=== PATIENT | female | born 1945 | race African-American/Black ===

== ENCOUNTER 2025-05-01 16:13 | Inpatient (IN) | payer MEDICARE, OTHER ==
[~2025-05-01] VITALS: Ht 167.6 cm; Wt 69.9 kg
[~2025-05-01 16:13] MED LIST: ESCI5TAB MT; FURO-152 MT; GABA-1180 MT; HYDR-4350 PO
[2025-05-01 16:14] VITALS: O2SAT 98
[2025-05-01] MEDS: ACETAMINOPHEN 500MG TABLET PO ONE (17:10)
[2025-05-01] MEDS: TETRACAINE 0.5% OPHTH DROPS 4ML RIGHTEYE ONE (22:03)
[2025-05-01] MEDS: FLUORESCEIN SODIUM 1MG/STRIP RIGHTEYE ONE (22:03)
[2025-05-01] MEDS ORDERED: CLINDAMYCIN 600 MG in DEXTROSE 5% WATER 50 ML IV ONE (22:45)
[2025-05-01] MEDS: MORPHINE SULFATE 2 MG/ML INJ (NOT FOR IM USE) IV ONE (23:26)
[2025-05-01] MEDS ORDERED: CLINDAMYCIN 600MG PREMIX 50 ML IV NR (23:30)
[2025-05-01 23:39] LABS: PLATELET 388 x1000/uL (130-400); RED BLOOD CELL COUNT 2.66 mill/uL (4.2-5.4); RED CELL DISTRIBUTION WIDTH 15.2 % (11.6-14.6)
[2025-05-01 23:50] LABS: CREATININE 1.0 mg/dL (0.6-1.0); UREA NITROGEN BLOOD 18 mg/dL (9-23)
[2025-05-02] VITALS: BP 122/66; PULSE 101; RESP 19; TEMP 36.4; O2SAT 97
[2025-05-02 03:21] VITALS: BP 122/66; PULSE 101; RESP 19; TEMP 36.418
[2025-05-02 04:00] VITALS: BP 103/61; PULSE 102; RESP 17; TEMP 36.7; O2SAT 100
[2025-05-02] MEDS: HYDROCODONE/ACETAMINOPHEN 10/325MG TABLET PO PRN (04:02)
[2025-05-02] MEDS: GABAPENTIN 300MG CAPSULE PO SCH (06:40)
[2025-05-02] MEDS: MORPHINE SULFATE 4 MG/ML INJ (FOR IV/IM USE) IV PRN (06:42)
[2025-05-02 08:00] VITALS: BP 129/77; PULSE 122; RESP 18; TEMP 35.6; O2SAT 95
[2025-05-02] MEDS: CITALOPRAM HYDROBROMIDE 10MG TABLET PO SCH (09:32)
[2025-05-02] MEDS: FUROSEMIDE 20MG TABLET PO SCH (09:32)
[2025-05-02 12:00] VITALS: BP 117/65; PULSE 98; RESP 18; TEMP 36.2; O2SAT 98
[2025-05-02] MEDS ORDERED: ONDANSETRON HCL 4MG/2ML INJ IV PRN (12:45)
[2025-05-02] MEDS ORDERED: ACETAMINOPHEN 325MG TABLET PO PRN (12:45)
[2025-05-02 16:00] VITALS: BP 112/64; PULSE 80; RESP 19; TEMP 36.2; O2SAT 100
[2025-05-02 16:05] LABS: *AMPHETAMINES SCREEN URINE NEGATIVE (NEGATIVE); *BARBITURATES SCREEN URINE NEGATIVE (NEGATIVE); *BENZODIAZEPINES SCREEN URINE NEGATIVE (NEGATIVE); *COCAINE SCREEN URINE PRESUMPTIVE POSITIVE (NEGATIVE); METHADONE URINE SCREEN NEGATIVE (NEGATIVE); OPIATES URINE SCREEN PRESUMPTIVE POSITIVE (NEGATIVE); PHENCYCLIDINE URINE SCREEN NEGATIVE (NEGATIVE)
[2025-05-02 16:06] LABS: CANNABINOID URINE SCREEN PRESUMPTIVE POSITIVE (NEGATIVE); ECSTASY MDMA SCREEN URINE NEGATIVE (NEGATIVE)
[2025-05-02 16:47] LABS: CLARITY URINE CLEAR (CLEAR); COLOR URINE YELLOW (YELLOW); GLUCOSE URINE NEGATIVE (NEGATIVE); KETONES URINE NEGATIVE (NEGATIVE); LEUKOCYTE ESTERASE URINE NEGATIVE (NEGATIVE); NITRITE URINE NEGATIVE (NEGATIVE); OCCULT BLOOD URINE NEGATIVE (NEGATIVE); PH URINE 6.0 (4.5-8.0); PROTEIN URINE NEGATIVE (NEGATIVE); SPECIFIC GRAVITY URINE 1.014 (1.005-1.030); UROBILINOGEN URINE 0.2 E.U./dL (0.2-1.0)
[2025-05-02 21:59] LABS: CREATININE 0.9 mg/dL (0.6-1.0); UREA NITROGEN BLOOD 13 mg/dL (9-23)
[2025-05-02 22:09] LABS: FOLIC ACID (FOLATE) SERUM 13.41 ng/mL (>5.38)
[2025-05-02 22:22] LABS: BASOPHILS % 0.5 % (0.0-2.0); EOSINOPHILS % 0.4 % (0.0-5.0); LYMPHOCYTES % 24.1 % (20.0-50.0); MEAN PLATELET VOLUME 7.3 fl (7.4-10.4); MONOCYTES % 14.2 % (2.0-8.0); NEUTROPHILS % 60.8 % (40.0-76.0); PLATELET 362 x1000/uL (130-400); RED BLOOD CELL COUNT 2.64 mill/uL (4.2-5.4); RED CELL DISTRIBUTION WIDTH 15.3 % (11.6-14.6)
[2025-05-02 22:50] LABS: HEMOGLOBIN. 6.8 g/dL (12.0-16.0)
[2025-05-02 22:51] LABS: HEMATOCRIT. 21.6 % (36.0-48.0)
[2025-05-03] VITALS (9 sets, daily range): BP systolic 90–140; BP diastolic 44–83; PULSE 74–108; RESP 18–20; TEMP 35.89176–37.72524; O2SAT 96–100
[2025-05-03] MEDS: PANTOPRAZOLE SODIUM 40 MG/VIAL IV SCH (08:32)
[2025-05-03 09:48] LABS: BASOPHILS % 0.7 % (0.0-2.0); EOSINOPHILS % 0.1 % (0.0-5.0); HEMATOCRIT. 26.4 % (36.0-48.0); HEMOGLOBIN. 8.4 g/dL (12.0-16.0); LYMPHOCYTES % 15.7 % (20.0-50.0); MEAN PLATELET VOLUME 7.3 fl (7.4-10.4); MONOCYTES % 13.0 % (2.0-8.0); NEUTROPHILS % 70.5 % (40.0-76.0); PLATELET 386 x1000/uL (130-400); RED BLOOD CELL COUNT 3.20 mill/uL (4.2-5.4); RED CELL DISTRIBUTION WIDTH 15.1 % (11.6-14.6)
[2025-05-03 10:10] LABS: CREATININE 0.7 mg/dL (0.6-1.0); UREA NITROGEN BLOOD 10 mg/dL (9-23)
[2025-05-03] MEDS ORDERED: NON FORMULARY MED XX SCH (14:45)
[2025-05-03] MEDS: IRON SUCROSE COMPLEX 100 MG/5 ML ML IV SCH (15:21)
[2025-05-04] VITALS: BP 117/76; PULSE 103; RESP 16; TEMP 36.5; O2SAT 95
[2025-05-04 04:33] VITALS: BP 122/77; PULSE 115; RESP 20; TEMP 36.4; O2SAT 98
[2025-05-04] MEDS: MORPHINE SULFATE 2 MG/ML INJ (NOT FOR IM USE) IV NR (04:52)
[2025-05-04 07:01] LABS: INR 1.0
[2025-05-04 07:06] LABS: BASOPHILS % 0.5 % (0.0-2.0); EOSINOPHILS % 0.5 % (0.0-5.0); HEMATOCRIT. 24.6 % (36.0-48.0); HEMOGLOBIN. 7.8 g/dL (12.0-16.0); LYMPHOCYTES % 21.3 % (20.0-50.0); MEAN PLATELET VOLUME 7.4 fl (7.4-10.4); MONOCYTES % 14.3 % (2.0-8.0); NEUTROPHILS % 63.4 % (40.0-76.0); PLATELET 371 x1000/uL (130-400); RED BLOOD CELL COUNT 2.98 mill/uL (4.2-5.4); RED CELL DISTRIBUTION WIDTH 14.9 % (11.6-14.6)
[2025-05-04 07:24] LABS: VITAMIN B12 SERUM 467 pg/mL (211-911)
[2025-05-04 07:24] LABS: CREATININE 0.8 mg/dL (0.6-1.0); UREA NITROGEN BLOOD 8 mg/dL (9-23)
[2025-05-04 07:26] LABS: ASPARTATE AMINOTRANSFERASE 18 IU/L (<34); BILIRUBIN TOTAL 0.3 mg/dL (0.1-1.0); PROTEIN TOTAL 6.8 g/dL (6.0-8.3)
[2025-05-04 08:00] VITALS: BP 128/92; PULSE 94; RESP 21; TEMP 36.4
[2025-05-04 12:00] VITALS: BP 94/50; PULSE 74; RESP 17; TEMP 35.2; O2SAT 100
[2025-05-04 16:00] VITALS: BP 118/71; PULSE 78; RESP 18; TEMP 36.4; O2SAT 97
[2025-05-04 20:00] VITALS: BP 113/57; PULSE 100; RESP 18; TEMP 36.6; O2SAT 97
[2025-05-05] VITALS: PULSE 100; RESP 20; TEMP 36.6; O2SAT 98
[2025-05-05 07:17] LABS: CREATININE 0.9 mg/dL (0.6-1.0); UREA NITROGEN BLOOD 11 mg/dL (9-23)
[2025-05-05 07:23] LABS: HEMATOCRIT. 24.8 % (36.0-48.0); HEMOGLOBIN. 7.9 g/dL (12.0-16.0); MEAN PLATELET VOLUME 7.7 fl (7.4-10.4); PLATELET 376 x1000/uL (130-400); RED BLOOD CELL COUNT 3.02 mill/uL (4.2-5.4); RED CELL DISTRIBUTION WIDTH 15.3 % (11.6-14.6)
[2025-05-05 08:00] VITALS: BP 111/59; PULSE 90; RESP 17; TEMP 36.2; O2SAT 96
[2025-05-05 12:00] VITALS: BP 119/62; PULSE 87; RESP 18; TEMP 36.4; O2SAT 96
[2025-05-05 16:00] VITALS: BP 113/59; PULSE 89; RESP 17; TEMP 36.2; O2SAT 95
[2025-05-05 20:00] VITALS: BP 114/79; PULSE 82; RESP 18; TEMP 36.6; O2SAT 97
[2025-05-06] VITALS: BP 118/71; PULSE 87; RESP 16; TEMP 36.4; O2SAT 97
[2025-05-06 07:41] LABS: CREATININE 0.9 mg/dL (0.6-1.0); UREA NITROGEN BLOOD 12 mg/dL (9-23)
[2025-05-06 07:42] LABS: BASOPHILS % 0.5 % (0.0-2.0); EOSINOPHILS % 0.4 % (0.0-5.0); HEMATOCRIT. 27.7 % (36.0-48.0); HEMOGLOBIN. 8.9 g/dL (12.0-16.0); LYMPHOCYTES % 19.6 % (20.0-50.0); MEAN PLATELET VOLUME 7.4 fl (7.4-10.4); MONOCYTES % 13.7 % (2.0-8.0); NEUTROPHILS % 65.8 % (40.0-76.0); PLATELET 421 x1000/uL (130-400); RED BLOOD CELL COUNT 3.37 mill/uL (4.2-5.4); RED CELL DISTRIBUTION WIDTH 15.6 % (11.6-14.6)
[2025-05-06 08:00] VITALS: BP 125/68; PULSE 86; RESP 18; TEMP 36.8; O2SAT 100
[2025-05-06 10:59] VITALS: BP 125/68; PULSE 86; RESP 18; TEMP 98.2
[2025-05-06 11:29] LABS: LYMPHOCYTES % MANUAL 22.0 % (20.0-60.0); MONOCYTES % MANUAL 13.0 % (2.0-8.0); NEUTROPHILS % MANUAL 65.0 % (45.0-75.0); PLATELET ESTIMATE NORMAL
== END 2025-05-06 11:35 | disposition home or self-care (01) | DRG 159 ==
LOC: ER 16:13 → 6EST 22:40 → EDBEDREQTM 23:11 → EDBEDREQ 23:11 → ENRESERV 23:41
PROVIDERS: ADMIT Internal Medicine; ATTEND Internal Medicine
PROC: 30233N1 Transfusion of Nonautologous Red Blood Cells into Peripheral Vein, Percutaneous Approach (ICD-10-PCS; principal; 2025-05-03)
DX: S02.40EA Zygomatic fracture, right side, initial encounter for closed fracture (principal); D64.9 Anemia, unspecified; S02.40CA Maxillary fracture, right side, initial encounter for closed fracture; J45.909 Unspecified asthma, uncomplicated; R63.4 Abnormal weight loss; E61.1 Iron deficiency; K46.9 Unspecified abdominal hernia without obstruction or gangrene; F12.90 Cannabis use, unspecified, uncomplicated; F10.90 Alcohol use, unspecified, uncomplicated; M19.09 Primary osteoarthritis, other specified site; Z96.643 Presence of artificial hip joint, bilateral; Z68.24 Body mass index [BMI] 24.0-24.9, adult; Z55.6 Problems related to health literacy; Z79.899 Other long term (current) drug therapy; Z90.49 Acquired absence of other specified parts of digestive tract; Z99.3 Dependence on wheelchair; Y04.0XXA Assault by unarmed brawl or fight, initial encounter; Y93.89 Activity, other specified; Y92.89 Other specified places as the place of occurrence of the external cause; Y99.8 Other external cause status
CPT/HCPCS: 36415; 70486; 80048; 80053; 80305; 81003; 82270; 82607; 82728; 82746; 83540; 83550; 85025; 85027; 85044; 86850; 86900; 86920; 96374; 97116; 97162; 99285; A4606; A4615; J2270; J2470; J3490; J7060; P9016